=== PATIENT | male | born 1985 | race Caucasian/White ===

== ENCOUNTER 2017-03-30 11:17 | Emergency (ER) | payer OTHER ==
[~2017-03-30 11:17] MED LIST: BACTRIM DS TABL1 TA2; FLEXERIL10 M1 PO; FLEXERIL10 MG PO; HYDROCODON-ACE1 EAC9 PO; MOTRIN600 MG PO; NAPROSYN500 MG PO; NO MEDICATIONS; VICODIN 5/1 TAB 5/50 PO; XANAX0.5 MG PO; XANAX1 MG PO; ZANTAC PO
== END 2017-03-30 13:25 | disposition home or self-care (01) ==
LOC: CED 11:17
DX: T40.1X1A Poisoning by heroin, accidental (unintentional), initial encounter (principal); F17.210 Nicotine dependence, cigarettes, uncomplicated; Z86.14 Personal history of Methicillin resistant Staphylococcus aureus infection
CPT/HCPCS: 96374; 99284; J2310